=== PATIENT | female | born 1960 | race Caucasian/White ===

== ENCOUNTER 2017-11-04 00:17 | Outpatient (CLI) | payer BC, SELFPAY ==
--- NOTE | 2017-11-04 07:49 | DI.MAMMO_ITS ---
SYMPTOM/DIAGNOSIS: SCREENING, Z12.31 MAMMOGRAMS: Mammograms were interpreted according to the usual protocol including computer analysis with CAD system, tomosynthesis and C view imaging. Comparison is made with exams from [id number]. The breasts are composed of fatty density tissue, breast density, Category A. In the superior left breast, slightly lateral to the nipple, there is a new area of somewhat irregular tissue density. Spot compression views and ultrasound are requested for further evaluation. The right breast shows no evidence of mass or suspicious calcifications. There has been no change in the right breast. IMPRESSION: Right breast, category 1, negative. Left breast, category 0. Left breast compression spot views and ultrasound are requested for further evaluation of an area of nodular tissue density in the upper outer quadrant. SA ASSESSMENT OF FINDINGS: Incomplete: Needs additional imaging evaluation. Category 0. Patient will receive a letter notifying them of these results.BI-RAD category A. The breasts are almost entirely fatty.
== END 2017-11-04 00:37 ==
PROVIDERS: PCP Internal Medicine; Visit Provider Nurse Practitioner Women's Health
DX: Z12.31 Encounter for screening mammogram for malignant neoplasm of breast (principal); R92.8 Other abnormal and inconclusive findings on diagnostic imaging of breast
CPT/HCPCS: 77063; 77067

== ENCOUNTER 2017-11-09 01:17 | Outpatient (CLI) | payer BC, SELFPAY ==
--- NOTE | 2017-11-09 13:19 | DI.COMBO_ITS ---
SYMPTOMS/DIAGNOSIS: F/U ABNORMAL MAMMO, IRREGULAR TISSUE DENSITY ADDITIONAL MAMMOGRAPHIC VIEWS, LEFT BREAST, AND LEFT BREAST ULTRASOUND: Additional images are interpreted according to the usual protocol including tomosynthesis and 2D imaging. Additional mammographic views of the left breast and left breast ultrasound are interpreted in conjunction. These examinations were obtained to evaluate questionable area of asymmetric density in the upper outer quadrant of the left breast seen on recent mammogram. Additional mammographic views fail to show a discrete mass. Breast ultrasound shows no evidence of a mass or cyst. CONCLUSION: No specific evidence of malignancy at this time. Follow-up unilateral left breast mammogram recommended in six months. Category 3, breast density category B. MQSA ASSESSMENT OF FINDINGS: Probably benign. Six month follow-up recommended. Category 3. Patient will receive a letter notifying them of these results. BI-RADS category B. There are scattered areas of fibroglandular density.
== END 2017-11-09 01:37 ==
PROVIDERS: PCP Internal Medicine; Visit Provider Nurse Practitioner Women's Health
DX: Z12.31 Encounter for screening mammogram for malignant neoplasm of breast (principal); R92.8 Other abnormal and inconclusive findings on diagnostic imaging of breast; N64.59 Other signs and symptoms in breast
CPT/HCPCS: 76642; 77063; 77067

== ENCOUNTER 2018-07-06 00:56 | Outpatient (CLI) | payer BC, SELFPAY ==
--- NOTE | 2018-07-06 14:17 | DI.MAMMO_ITS ---
SYMPTOMS/DIAGNOSIS: 6-MO F/U TO ABNORMAL LEFT MAMMO, ASYMMETRIC DENSITY, N64.59 MAMMOGRAM, LEFT BREAST: Left breast mammogram was interpreted according to the usual protocol including computer analysis with CAD system, tomosynthesis and C view imaging. Today's mammogram was obtained to follow an area of asymmetric density in the upper outer quadrant of the left breast seen on previous examination of October 2017. On today's examination, the area of asymmetric density is no longer seen. No new mass or clumped microcalcification is identified in the left breast. CONCLUSION: No specific evidence of malignancy at this time. I would suggest that routine screening examinations resume with a bilateral mammogram in six months. Category 3, breast density category B. MQSA ASSESSMENT OF FINDINGS: Probably benign. Six month follow-up recommended. Category 3. Patient will receive a letter notifying them of these results. BI-RADS category B. There are scattered areas of fibroglandular density.
== END 2018-07-06 01:16 ==
PROVIDERS: PCP Internal Medicine; Visit Provider Nurse Practitioner Women's Health
DX: Z12.31 Encounter for screening mammogram for malignant neoplasm of breast (principal); R92.8 Other abnormal and inconclusive findings on diagnostic imaging of breast; N64.59 Other signs and symptoms in breast
CPT/HCPCS: 77061; 77065; G0279

== ENCOUNTER 2019-02-01 00:36 | Outpatient (CLI) | payer BC, SELFPAY ==
--- NOTE | 2019-02-01 07:28 | DI.MAMMO_ITS ---
EXAM: MG MAMMO SCREENING CLINICAL HISTORY: SCREENING Z12.31. TECHNIQUE: Full field digital CC and MLO mammographic images were obtained with 3D tomosynthesis and utilizing computer aided detection (CAD). COMPARISON: . 2009 through 2018 FINDINGS: Breast density: B scattered fibroglandular densities. Masses/Architectural Distortion: None seen. Microcalcifications: No suspicious pleomorphic-type calcifications are seen. Skin Thickening/Nipple Retraction: None. Axilla: Unremarkable. IMPRESSION: 1. BI-RADS category 1, negative. No significant interval change with no specific features of maligna ncy noted. 2. Unless there is more urgent need, screening mammography is recommended, as per [employer] guidelines. A negative radiographic report should not delay biopsy if a dominant or clinically suspicious mass is present. Up to ten percent of cancers are not identified on mammography. A negative report may reinforce clinical impression. Adenosis and dense breasts may obscure an underlying neoplasm. False positive reports average 6 to 10%. Patient will receive a letter notifying them of these results.
== END 2019-02-01 00:56 ==
PROVIDERS: PCP Internal Medicine; Visit Provider Nurse Practitioner Women's Health
DX: Z12.31 Encounter for screening mammogram for malignant neoplasm of breast (principal)
CPT/HCPCS: 77063; 77067

== ENCOUNTER 2020-01-03 07:39 | Outpatient (CLI) | payer BC, SELFPAY ==
[2020-01-03 16:41] LABS: Abs Immature Grans 0.03 10^3/uL (0.0-0.06); Absolute Basophil Count 0.01 10^3/uL (0.0-0.2); Absolute Eosinophil Count 0.15 10^3/uL (0.0-0.7); Absolute Lymphocyte Count 2.38 10^3/uL (1.2-3.4); Absolute Monocyte Count 0.33 10^3/uL (0.1-0.8); Absolute Neutrophil Count 3.48 10^3/uL (1.2-6.7); Basophils % 0.2; Eosinophils % 2.4; HCT 31.9 % (36.0-46.0); Immature Grans % 0.5; Lymphocytes % 37.3; MCH 27.6 pg (27.0-33.0); MCHC 31.3 % (32.0-36.0); MCV 88.1 fL (80-95); MPV 10.3 fL (8.0-11.0); Monocytes % 5.2; Neutrophils % 54.4; Nucleated RBC 0 %; Platelet Count 372 10^3/uL (130-400); RBC 3.62 10^6/uL (3.93-5.22); RDW 15.8 % (11.7-14.6); RDW-SD 50.1 fL; WBC 6.38 10^3/uL (4.4-10.8)
[2020-01-22 13:28] LABS: Albumin 3.7 g/dL (3.4-4.7); IgA 16 mg/dL (61-356); IgG 2320 mg/dL (767-1590); IgM 13 mg/dL (37-286); Lambda Free Light Chain 62.9 mg/dL (0.5700-2.63); Total Protein 8.4 g/dL (6.3-7.9)
[2020-01-22 13:30] LABS: Comment See Comments
[2020-01-22 14:21] LABS: Immunotyping, Serum See Comments
== END 2020-01-03 07:59 ==
PROVIDERS: PCP Internal Medicine; Visit Provider Internal Medicine Hematology & Oncology
DX: C90.00 Multiple myeloma not having achieved remission (principal); D47.2 Monoclonal gammopathy
CPT/HCPCS: 36415; 82784; 83883; 84165; 85025; 86320

== ENCOUNTER 2020-02-04 00:23 | Outpatient (CLI) | payer BC, SELFPAY ==
--- NOTE | 2020-02-04 | DI.MAMMO_ITS ---
EXAM: MG MAMMO SCREENING CLINICAL HISTORY: SCREENING,Z12.39. TECHNIQUE: Bilateral full field digital CC and MLO mammographic images were obtained with 3D tomosyn thesis and utilizing computer aided detection (CAD). COMPARISON: Prior mammograms dating back to 2011, the most recent being January 2019. Breast ultra sound October 2017 was reviewed FINDINGS: There are no CAD designations. Small benign-appearing nodule in the left breast is unchanged from pr ior studies. There are no spiculated masses nor malignant appearing microcalcification groups. There is no signif icant architectural distortion nor skin thickening-retraction. IMPRESSION: No radiographic evidence of malignancy. Stable benign findings BI-RADS Category 2 - Benign Findings Breast Density - Category B - Scattered areas of fibroglandular density Breast density Category C or D implies that the patient has dense breast tissue. Dense breast tissue can make it harder to find cancer on a mammogram. Dense breast tissue is also associated with an incr eased risk of breast cancer. This information about the result of the mammogram report was provided to the patient to raise their awareness. Use this report when you speak with the patient about their risks for breast cancer, which includes their family history. At that time, you may recommend additional screening tests (Ultrasoun d or MRI) as these tests may add significant information. A negative radiographic report should not delay biopsy if a dominant or clinically suspicious mass is present. Up to ten percent of cancers are not identified on mammography. A negative report may reinforce clinical impression. Adenosis and dense breasts may obscure an underlying neoplasm. False positive reports average 6 to 10%. Patient will receive a letter notifying them of these results.
== END 2020-02-04 00:43 ==
PROVIDERS: PCP Internal Medicine; Visit Provider Nurse Practitioner Women's Health
DX: Z12.31 Encounter for screening mammogram for malignant neoplasm of breast (principal); N63.20 Unspecified lump in the left breast, unspecified quadrant
CPT/HCPCS: 77063; 77067

== ENCOUNTER 2021-02-11 01:31 | Outpatient (CLI) | payer BC, SELFPAY ==
--- NOTE | 2021-02-11 | DI.MAMMO_ITS ---
Exam(s) MAMMO SCREENING EXAM: MAMMO SCREENING CLINICAL HISTORY: SCREENING, Z12.39 TECHNIQUE: Bilateral full field digital CC and MLO mammographic images were obtained with 3D tomosyn thesis and utilizing computer aided detection (CAD). COMPARISON: Available for comparison. FINDINGS: Masses/Architectural Distortion: None seen. Microcalcifications: No suspicious pleomorphic-type are seen. Skin Thickening/Nipple Retraction: None. IMPRESSION: 1. No significant interval change with no specific features of malignancy noted. 2. Unless there is more urgent need, screening mammography is recommended, as per [employer] guidelines. BI-RADS Category 1 - Negative Breast Density - Category B - Scattered areas of fibroglandular density Breast density category C or D implies that the patient has dense breast tissue. Dense breast tissue is very common and is not abnormal but dense breast tissue can make it harder to find cancer on a ma mmogram. Also, dense breast tissue may increase their breast cancer risk. This information about the result of the mammogram report was provided to the patient to raise their awareness. Use this report when you speak with the patient about their risks for breast cancer, which includes their family hist ory. At that time, you may recommend for more screening tests (Ultrasound or MRI) as they might be us eful based on their risk. A negative radiographic report should not delay biopsy if a dominant or clinically suspicious mass is present. Up to ten percent of cancers are not identified on mammography. A negative report may reinforce clinical impression. Adenosis and dense breasts may obscure an underlying neoplasm. False positive reports average 6 to 10%. Patient will receive a letter notifying them of these results.
== END 2021-02-11 01:51 ==
PROVIDERS: PCP Internal Medicine; Visit Provider Nurse Practitioner Women's Health
DX: Z12.31 Encounter for screening mammogram for malignant neoplasm of breast (principal)
CPT/HCPCS: 77063; 77067

== ENCOUNTER 2022-03-23 01:15 | Outpatient (CLI) | payer BC, SELFPAY ==
--- NOTE | 2022-03-23 | DI.MAMMO_ITS ---
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 COMPARISON: Available for comparison. FINDINGS: Masses/Architectural Distortion: There has been no change in the retroareolar nodule in the left [address]. No suspicious nodules or areas of architectural distortion are seen. Microcalcifications: No suspicious pleomorphic-type are seen. Skin Thickening/Nipple Retraction: None. IMPRESSION: 1. No significant interval change with no specific features of malignancy noted. 2. Unless there is more urgent need, screening mammography is recommended, as per [employer] guidelines. BI-RADS Category 1 - Negative Breast Density - Category B - Scattered areas of fibroglandular density Breast density category C or D implies that the patient has dense breast tissue. Dense breast tissue is very common and is not abnormal but dense breast tissue can make it harder to find cancer on a ma mmogram. Also, dense breast tissue may increase their breast cancer risk. This information about the result of the mammogram report was provided to the patient to raise their awareness. Use this report when you speak with the patient about their risks for breast cancer, which includes their family hist ory. At that time, you may recommend for more screening tests (Ultrasound or MRI) as they might be us eful based on their risk. A negative radiographic report should not delay biopsy if a dominant or clinically suspicious mass is present. Up to ten percent of cancers are not identified on mammography. A negative report may reinforce clinical impression. Adenosis and dense breasts may obscure an underlying neoplasm. False positive reports average 6 to 10%. Patient will receive a letter notifying them of these results.
== END 2022-03-23 01:35 ==
LOC: DI 01:15
PROVIDERS: PCP Internal Medicine; Visit Provider Nurse Practitioner Women's Health
DX: Z12.31 Encounter for screening mammogram for malignant neoplasm of breast (principal)
CPT/HCPCS: 77063; 77067

== ENCOUNTER → 2023-03-29 01:26 | Outpatient (CLI) | payer BC, SELFPAY ==
--- OUTSIDE RECORDS SUMMARY | 2023-03-29 01:28 | XMS_ITS | Continuity of Care Document ---
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 exam(Discharge Diagnosis) - 11/17/22 Screening mammogram for breast cancer(Discharge Diagnosis) - 11/17/22 Discharge Disposition: Home or Self Care Attending Physician: Joan Deleon APRN Referring Physician: JULISA RUVALCABA Allergies, Adverse Reactions, Alerts Substance Reaction Severity Status tetracycline stomach pain Moderate Active sulfa drugs itching Moderate Active fluoride containing compounds rash around mouth Modera te Active Assessment and Plan Future Scheduled Tests Radiology* MG Mammo Screening Bilateral 11/17/22 Medications AAA - [facility] Prescription 180 tab, 0 Refill(s), 0 Refill(s) Start Date: 11/16/22 Status: Ordered Adult Multivitamin Gummies oral tablet, chewable See Instructions, 1 tab oral daily, 0 Refill(s) Start Date: 11/16/22 Status: Ordered amLODIPine 10 mg oral tablet 90 tab, 0 Refill(s), 0 Refill(s) Start Date: 11/16/22 Status: Ordered amoxicillin-clavulanate 500 mg-125 mg oral tablet 10 EA, 0 Refill(s), take 1 tablet by mouth every 12 hours if needed with meals for 5 days, 0 Refill(s) Start Date: 11/16/22 Status: Ordered aspirin 325 mg oral tablet 325 mg = 1 tab, Oral, Daily, # 30 tab, 0 Refill(s) Start Date: 11/16/22 Status: Ordered aspirin 81 mg oral delayed release tablet 81 mg = 1 tab, Oral, Daily, # 90 tab, 0 Refill(s) Start Date: 11/17/22 Status: Ordered atorvastatin 20 mg oral tablet 90 tab, 0 Refill(s), 0 Refill(s) Start Date: 11/16/22 Status: Ordered benzonatate 200 mg oral capsule 30 EA, 0 Refill(s), take 1 capsule by mouth three times a day if needed for 10 days, 0 Refill(s) Start Date: 11/16/22 Status: Ordered betamethasone dipropionate 0.05% topical cream 15 g, 0 Refill(s), APPLY A THIN LAYER TO AFFECTED AREA ONCE DAILY DIRECTED, 0 Refill(s) Start Date: 11/16/22 Status: Ordered buPROPion 300 mg/24 hours (XL) oral tablet, extended release 90 tab, 0 Refill(s), 0 Refill(s) Start Date: 11/16/22 Status: Ordered cephalexin 500 mg oral capsule 8 EA, 0 Refill(s), take 4 capsules by mouth 1 hour prior to dental appointment, 0 Refill(s) Start Date: 11/16/22 Status: Ordered clindamycin 300 mg oral capsule 4 EA, 0 Refill(s), take 2 capsules by mouth 1 HOUR BEFORE DENTAL APPOINTMENT, 0 Refill(s) Start Date: 11/16/22 Status: Ordered doxycycline monohydrate 100 mg oral capsule 14 EA, 0 Refill(s), take 1 capsule by mouth twice a day with meals for 7 days, 0 Refill(s) Start Date: 11/16/22 Status: Ordered gabapentin 300 mg oral capsule 810 cap, 0 Refill(s), 0 Refill(s) Start Date: 11/16/22 Status: Ordered ketoconazole 2% topical cream 30 g, 0 Refill(s), APPLY TO AFFECTED AREA(S) ONCE DAILY DIRECTED, 0 Refill(s) Start Date: 11/16/22 Status: Ordered Lenalidomide 10 mg oral capsule 21 cap, 0 Refill(s), 0 Refill(s) Start Date: 11/16/22 Status: Ordered Lenalidomide 20 mg oral capsule 21 cap, 0 Refill(s), 0 Refill(s) Start Date: 11/16/22 Status: Ordered lisinopril 40 mg oral tablet 90 tab, 0 Refill(s), 0 Refill(s) Start Date: 11/16/22 Status: Ordered magnesium gluconate 250 mg oral tablet 250 mg 1 tab, Oral, Daily, # 60 tab, 0 Refill(s) Start Date: 11/16/22 Status: Ordered Metoprolol Succinate ER 100 mg oral tablet, extended release 90 tab, 0 Refill(s), 0 Refill(s) Start Date: 11/16/22 Status: Ordered Nyamyc 100,000 units/g topical powder 60 g, 0 Refill(s), apply to affected area twice a day, 0 Refill(s) Start Date: 11/16/22 Status: Ordered omeprazole 20 mg oral delayed release capsule 90 cap, 0 Refill(s), 0 Refill(s) Start Date: 11/16/22 Status: Ordered Revlimid 20 mg oral capsule 21 cap, 0 Refill(s), 0 Refill(s) Start Date: 11/16/22 Status: Ordered Rhinocort Allergy 32 mcg/inh nasal spray 1 sprays, Nasal, Daily, in each nostril, 0 Refill(s) Start Date: 11/16/22 Status: Ordered sertraline 50 mg oral tablet 90 tab, 0 Refill(s), 0 Refill(s) Start Date: 11/16/22 Status: Ordered tiZANidine 4 mg oral tablet 180 tab, 0 Refill(s), 0 Refill(s) Start Date: 11/16/22 Status: Ordered triamcinolone 0.1% topical cream 30 g, 0 Refill(s), APPLY A THIN LAYER TO THE AFFECTED AREA(S) TWICE DAILY DIRECTED, 0 Refill(s) Start Date: 11/16/22 Status: Ordered Vitamin D3 1000 intl units oral tablet See Instructions, 2 tabs Oral Daily, 0 Refill(s) Start Date: 11/16/22 Status: Ordered zinc (as gluconate) 50 mg oral tablet 50 mg = 1 tab, Oral, Daily, # 30 tab, 0 Refill(s) Start Date: 11/16/22 Status: Ordered Problem List Condition Confirmation Course Effective Dates Status H ealth Status Informant Anemia Confirmed Active Atrophic vaginitis Confirmed Active Bilateral sacroiliitis Confirmed Active Carpal tunnel syndrome Confirmed Active CC - Collagenous colitis Confirmed Active Chronic pain Confirmed Active Depression Confirmed Active History of malignant neoplasm of skin Confirmed Active History of operative procedure on knee Confirmed Active History of shingles Confirmed Active History of total knee arthroplasty Confirmed Active Hyperlipidemia Confirmed Active Hypertension Confirmed Active Inflammation of sacroiliac joint Confirmed Active Lumbosacral spondylosis without myelopathy Confirmed Active MGUS - Monoclonal gammopathy of uncertain significance Confirmed Active Nontraumatic rupture of rotator cuff of right shoulder Confirmed Active Opioid dependence Confirmed Active Osteoarthritis of knee Confirmed Active Osteoarthritis of left knee joint Confirmed Active Plantar fasciitis Confirmed Active Smoldering multiple myeloma Confirmed Active Procedures Procedure Date Related Diagnosis Body Site Status Colonoscopy and EGD 1 08/2020 Com pleted Left TKA 05/2020 Completed Colonoscopy 2 10/10/19 Completed EGD - Esophagogastroduodenoscopy 10/10/19 Completed History of repair of right rotator cuff 08/05/19 Completed Bone density scan 3 08/21/17 Compl eted Bone marrow biopsy 08/21/17 Comple oralia Right TKA 07/03/17 Completed Back surgery 12/2012 Completed [id number] 08/2012 Com pleted Colonoscopy 2012 Completed Bone marrow biopsy 5 Comp leted 1Dr Mitz 2Dr Steffany 3full bone xray-negative results 4recall 10 years 5[facility] Vital Signs Most recent to oldest [Reference Range]: 1 Blood Pressure [90-140/60-90 mmHg] 136/8 6mmHg (11/17/22 9:24 AM) Weight 83.5 kg (11/17/22 9:24 AM) Weight Measured (lbs) 184.086 lb (11/17/22 9:24 AM) Plover Body Weight Calculated 45.5 kg (11/17/22 9:24 AM) Height 149.86 cm (11/17/22 9:24 AM) Height/Length Measured (inches) 59 inch (11/17/22 9:24 AM) BSA Measured 1.86 m2 (11/17/22 9:24 AM) Body Mass Index 37.18 kg/m2 (11/17/22 9:24 AM) Social History Social History Type Response Smoking Status Smoking tobacco use: Former tobacco user;Never entered on: 11/16/22 Sex Patient Care team information Care Team Personnel Name: JULISA RUVALCABA Position: No Access Member Role: Primary Care Physician Address: Address: [address] [place] [phone]
--- OUTSIDE RECORDS SUMMARY | 2023-03-29 01:28 | XMS_ITS | Continuity of Care Document ---
Author Name Unknown Organization [facility] Address [address] [place] [id number] Care Team Providers Care Sweatband Flanger Name Role Phone JULISA RUVALCABA Primary Care Physician [phone] Encounter [facility] FIN NBR [id number] Date(s): 11/18/22 - 11/18/[address] [address] Discharge Disposition: Home Allergies, Adverse Reactions, Alerts Substance Reaction Severity Status tetracycline stomach pain Moderate Active sulfa drugs itching Moderate Active fluoride containing compounds rash around mouth Modera te Active Assessment and Plan Future Scheduled Tests Radiology* MG Mammo Screening Bilateral 11/17/22 Medications AAA - Misc Prescription 180 tab, 0 Refill(s), 0 Refill(s) [...] TKA 07/03/17 Completed Back surgery 12/2012 Completed [id number]-WOX-nfyrjhudp 08/2012 Com pleted Colonoscopy 2012 Completed Bone marrow biopsy 5 Comp leted 1Dr Kenton 2Dr Steffany 3full bone xray-negative results 4recall 10 years 5[facility] Social History Social History Type Response Smoking Status Smoking tobacco use: Former tobacco user;Never entered on: 11/16/22 Sex Patient Care team information Care Team Personnel Name: JULISA RUVALCABA Position: No Access Member Role: Primary Care Physician Address: Address: [address] [place] [address]
--- OUTSIDE RECORDS SUMMARY | 2023-03-29 01:28 | XMS_ITS | Patient Health Record ---
Author Name Unknown Organization [facility] Office Address [address] [facility] [address] [place], [place] [id number] Care Team Providers Care Distillery Miller Helper Name Role Phone Dr. DAO RIGGS Unavailable [phone] Migration, Provider Unavailable Unavailable ALLERGIES Allergen (clinical drug ingredient) Drug/Non Drug Allergy documented on EMR Reaction Allergy Type Onset Date Status Product containing tetracycline structure (product) tetracyclines (uncoded) Unknown Allergy 11/28/2018 Active Fluoride Unknown Drug Allergy 11/28/2018 Active Substance with sulfonamide structure and antibacterial mechanism of action (substance) Sulfa Antibiotics Unknown Drug Allergy 11/28/2018 Active REASON FOR REFERRAL No Information MEDICATIONS Medication SIG (Take, Route, Frequency, Duration) Notes Start Date End Date Status buPROPion buPROPion *Reord er from [employer] for eRx and Interaction Alerts* 11/28/2018 Active Simvastatin simvastatin *Pic k strength-form from [employer] for eRX* 11/28/2018 Active Lidoderm 5 % External Lidoderm 11/28/2018 Active sertraline sertraline *Reor delmar from [employer] for eRx and Interaction Alerts* 11/28/2018 Active Lopressor Lopressor *Pick strength-form from [employer] for eRX* 11/28/2018 Active Lisinopril lisinopril *Pick strength-form from [employer] for eRX* 11/28/2018 Active Meloxicam 15 MG Oral qd meloxicam 11/28/2018 Act jackie SOCIAL HISTORY Sex Assigned At : Social History Observation Description Sex Assigned At Unknown PROBLEMS Problem Type ICD Code Onset Dates Problem Status W/U Status Risk SNOMED Code Notes Problem 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 Fear of nee dles (finding) (866234819) Problem Situational anxiety (F41.8) Active confirmed Anxiety (03072085) Problem Other specified arthritis, other site (M13.88) Active confirmed Arthritis (1755047) [place] [address] 47- Problem Pain in right shoulder (M25.511) Active confirmed Shoulder joint pain (131245734) [place] [address]- Problem Sacroiliitis, not elsewhere classified (M46.1) Active confirmed Solitary sacroiliitis (023251813) [facility] 47- Problem Spondylosis without myelopathy or radiculopathy, lumbar region (M47.816) Active confirmed Lumbosacral spondylosis without myelopathy (72162984) [place] [address]- Problem Other myositis, right shoulder (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) Active confirmed Myositis of right shoulder (disorder) (20362208434038 109) [place] [address]- Problem Spinal stenosis, lumbar region without neurogenic claudication (M48.061) Active confirmed Spinal stenosis of lumbar region (23606530) [place] [address]- VITAL SIGNS Heart Rate 54 /min 12/15/2022 Temperature 97.1 degrees Fahrenheit 12/15/2022 Respiratory Rate 16 /min 12/15/2022 Height-cm 149.86 cm 12/15/2022 Oximetry 97 % 12/15/2022 Blood pressure diastolic 52 mm Hg 11/30/2022 Weight-kg 79.38 kg 11/30/2022 Height 4' 11 in 11/30/2022 Blood pressure systolic 126 mm Hg 11/30/2022 Weight 175 lbs 11/30/2022 BMI 35.34 kg/m2 11/30/2022 PROCEDURES Procedure Date Ordered Date Performed Result Body Sit e * INCORRECT CODE FOR LUMBAR RFL 11/30/2022 N/A * LUMBAR RFL ADDL LEVELS 11/30/2022 N/A *SEDATION MODERATE 62413 11/30/2022 N/A Encounters Encounter Location Date Provider Diagnosis [facility] Office [address] [place] [address] [address] [place], [place] [id number] 03/31/2022 Provider Migration [facility] Office [address] [facility] [address] [place], [place] [id number] 04/01/2022 DAO RIGGS [facility] Office [address] [place] [address] [address] [place], [place] [id number] 04/21/2022 DAO RIGGS [facility] Office [address] [place] [address] [address] [place], [place] [id number] 05/05/2022 DAO RIGGS [facility] Office [address] [place] [address] [address] [place], [place] [id number] 08/05/2022 DAO RIGGS [facility] Office [address] [place] [address] [address] [place], [place] [id number] 11/30/2022 DAO RIGGS Spondylosis without myelopathy or radiculopathy, lumbar region M47.816 [facility] Office [address] [place] [address] [address] [place], [place] [id number] 12/15/2022 DAO RIGGS Severe needle phobia F40.231 ; Spondylosis without myelopathy or radiculopathy, lumbar region M47.816 and Situational anxiety F41.8 [facility] Office [address] [place], [place] [id number] 09/11/2022 Provider Migration [facility] Office [address] [place] [address] [address] [place], [place] [id number] 09/12/2022 Provider Migration ASSESSMENTS Encounter Date Diagnosis Assessment Notes Treatment Notes Treatment Clinical Notes 11/30/2022 Spondylosis without myelopathy or radiculopathy, lumbar region (ICD-10 - M47.816) 12/15/2022 Severe needle phobia (ICD-10 - F40.231) 12/15/2022 Spondylosis without myelopathy or radiculopathy, lumbar region (ICD-10 - M47.816) [id number]- 12/15/2022 Situational anxiety (ICD-10 - F41.8) PLAN OF TREATMENT Pending Test Test Name Order Date * INCORRECT CODE FOR LUMBAR RFL 12/01/19 23 * LUMBAR RFL ADDL LEVELS 11/30/2022 *SEDATION MODERATE [id number] 11/30/2022 Insurance Providers Payer Name Payer Address Payer Phone Subscriber Number Group Number Insured Name Patient Relationship to Insured Coverage Start Date Coverage End Date BCBS [address] [place], [place] [id number] CHASTITY [id number] Self - patient is the insured MEDICAL (GENERAL) HISTORY Medical History History ICD Code Obesity, unspecified Radial styloid tenosynovitis [de Quervai n] Nicotine dependence, other tobacco produ ct, uncomplicated Lumbar MRI : :- Notes: worseing of levoscoliosis from 2-13 study; worsening of L2-3 severe nfn right worst; mod right nfn L3-4; severe canal narrowing L4-5 with mod-severe shala nfn; multilevel facet hypertrophy and disc bulges , Actinic keratosis Chronic kidney disease, stage 1 Anemia, unspecified Hyperlipidemia, unspecified Obstructive sleep apnea (adult) (pediatr ic) Dermatitis, unspecified Monoclonal gammopathy Age-related osteoporosis without current pathological fracture Essential (primary) hypertension Gastro-esophageal reflux disease without esophagitis Surgical History Surgery Date(Month/Year) right CTR 2012 right L5-S1 medial facetectomy Dr Martha torres [address] Belle ARTHROCENTESIS ASPIR&/INJ INTERM JT/BURS W/US Injection procedure for sacroiliac joint ; arthrography 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
--- OUTSIDE RECORDS SUMMARY | 2023-03-29 01:28 | XMS_ITS | Continuity of Care Document ---
Author Name Unknown Organization [facility] Address [address] [place], [place] [address] Care Team Providers Care Biomedical Engineering Director Name Role Phone Hernán Moreno Primary Care Physician Encounter [facility] [id number] Date(s): 01/06/23 - 01/06/[address] Discharge Disposition: Home or Self Care Attending Physician: Judy Wynn MD Admitting Physician: Judy Wynn MD Referring Physician: Judy Wynn MD Assessment and Plan Future Appointments Social History Social History Type Response Sex Female Patient Care team information Care Team Personnel Name: Hernán Moreno CONTOUR STITCHER Position: Mid-Level Provider - Auth Member Role: Primary Care Physician Address: Address: [address] [place] [address]
--- NOTE | 2023-03-29 08:46 | DI.MAMMO_ITS ---
Exam(s) MAMMO SCREENING EXAM: MAMMO SCREENING CLINICAL HISTORY: SCREENING, Z12.31 TECHNIQUE: Mammograms were interpreted according to the usual protocol including computer analysis w [employer] CAD system, tomosynthesis and C-view imaging. COMPARISON: 2013 through 2022 FINDINGS: The breasts are composed of scattered fibroglandular densities, Breast Density category B. No suspicious masses or suspicious microcalcifications are seen. No skin thickening or abnormal axillary lymph nodes are seen. There has been no significant change from prior exams. IMPRESSION: BI-RADS Category 1, Negative mammogram Yearly screening mammography is recommended. Breast Density - Category B, scattered fibroglandular densities. A negative radiographic report should not delay biopsy if a dominant or clinically suspicious mass is present. Up to ten percent of cancers are not identified on mammography. A negative report may reinforce clinical impression. Adenosis and dense breasts may obscure an underlying neoplasm. False positive reports average 6 to 10%. Patient will receive a letter notifying them of these results.
== END ==
PROVIDERS: PCP Internal Medicine; Visit Provider Nurse Practitioner Women's Health
DX: Z12.31 Encounter for screening mammogram for malignant neoplasm of breast (principal); R92.323 Mammographic fibroglandular density, bilateral breasts
CPT/HCPCS: 77063; 77067

== ENCOUNTER 2024-04-04 02:04 | Outpatient (CLI) | payer BC, SELFPAY ==
--- NOTE | 2024-04-04 | DI.MAMMO_ITS ---
Exam(s) MAMMO SCREENING EXAM: MAMMO SCREENING CLINICAL HISTORY: SCREENING, Z12.31. TECHNIQUE: Bilateral full field digital CC and MLO mammographic images were obtained with 3D tomosyn thesis and utilizing computer aided detection (CAD). COMPARISON: Prior mammograms were reviewed. FINDINGS: There has been no significant change in the appearance and distribution of the fibroglandular tissue. Small benign-appearing nodule anteriorly in the left breast is unchanged from least 2016. Posteriorly in the left breast there is a small nodular density also noted which is unchanged from pr ior mammograms and consistent with probable benign intramammary lymph node. There are no new spiculated masses nor malignant appearing microcalcification groups. There is no significant architectural distortion nor skin thickening-retraction. IMPRESSION: No radiographic evidence of malignancy. Stable benign findings BI-RADS Category 2 - Benign Findings Breast Density - Category B - Scattered areas of fibroglandular density Breast density Category C or D implies that the patient has dense breast tissue. Dense breast tissue can make it harder to find cancer on a mammogram. Dense breast tissue is also associated with an incr eased risk of breast cancer. This information about the result of the mammogram report was provided to the patient to raise their awareness. Use this report when you speak with the patient about their risks for breast cancer, which includes their family history. At that time, you may recommend additional screening tests (Ultrasoun d or MRI) as these tests may add significant information. A negative radiographic report should not delay biopsy if a dominant or clinically suspicious mass is present. Up to ten percent of cancers are not identified on mammography. A negative report may reinforce clinical impression. Adenosis and dense breasts may obscure an underlying neoplasm. False positive reports average 6 to 10%. Patient will receive a letter notifying them of these results.
== END 2024-04-04 02:24 ==
LOC: DI 02:05
PROVIDERS: PCP Internal Medicine; Visit Provider Nurse Practitioner Women's Health
DX: Z12.31 Encounter for screening mammogram for malignant neoplasm of breast (principal); R92.323 Mammographic fibroglandular density, bilateral breasts; D24.2 Benign neoplasm of left breast
CPT/HCPCS: 77063; 77067

== ENCOUNTER 2024-06-20 00:34 | Outpatient (CLI) | payer BC, SELFPAY ==
--- NOTE | 2024-06-20 07:00 | DI.MRI_ITS ---
Exam(s) MR LUMBAR SPINE WO EXAM: MR LUMBAR SPINE WO CLINICAL HISTORY: LOW BACK pain,POST LAMINECTOMY SYNDROME,LUMBAR RADICULITIS. TECHNIQUE: Multiplanar multisequence MRI of the Lumbar spine was performed. COMPARISON: MR MRI LUMBAR WO/ from 08/05/2009 FINDINGS: Bones: The last intervertebral disc space is designated the L5/S1 level for the numbering purpose of this examination. The vertebral body heights are well maintained. Insert prior examination in 2009 the patient has undergone what appears to be both an L4 and L5 laminectomy. There is a grade 1 anter olisthesis of L4 on L5. There are endplate degenerative signal changes throughout the lower thoracic and lumbar spine. Cord: The conus tip ends at the T12 level. It is of normal size and signal intensity. T12-L1: There is a mild diffuse disc bulge. No significant central spinal canal stenosis is present. There is mild bilateral neural foraminal stenosis. L1-2: No focal disc herniation is seen. No significant central spinal canal stenosis is present. Th ere is disc material extending into the right neural foramen causing moderate right neural foraminal stenosis. No significant left neural foraminal stenosis is present. L2-3: There is a mild diffuse disc bulge extending into the neural foramen. Mild degenerative change s of the facets are present. No significant central spinal canal stenosis is seen. There is moderat e bilateral neural foraminal stenosis. L3-4: There is a mild diffuse disc bulge. Degenerative changes of the facets are present. There is mild narrowing of the central spinal canal. There is marked right and moderate left neural foraminal stenosis. L4-5: There is marked central spinal canal stenosis secondary to the anterolisthesis and degenerative facet arthropathy at this level. There is marked bilateral neural foraminal stenosis, left greater than right. L5-S1: There is a diffuse disc bulge. There are degenerative changes of the facets. Findings result in moderately severe central spinal canal stenosis. There is moderate bilateral neural foraminal st enosis. Soft tissues: The visualized SI joints and sacrum are well maintained. The paraspinal soft tissues ar e unremarkable. Visualized abdominal organs: There are few tiny simple cysts in the kidneys. No follow-up is recomme nded. IMPRESSION: 1. At L4-5 there is marked central spinal canal stenosis and bilateral marked neural foraminal stenos is secondary to the degenerative changes in the anterolisthesis. 2. Multilevel degenerative changes in the lumbar spine resulting in central spinal canal and neural f oraminal stenosis as described above. DATA REPOSITORY:
== END 2024-06-20 00:54 ==
LOC: DI 00:34
PROVIDERS: PCP Internal Medicine; Visit Provider Anesthesiology Pain Medicine
DX: M96.1 Postlaminectomy syndrome, not elsewhere classified (principal); M47.816 Spondylosis without myelopathy or radiculopathy, lumbar region
CPT/HCPCS: 72148

== ENCOUNTER 2024-07-11 10:09 | Outpatient (CLI) | payer BC, SELFPAY ==
--- NOTE | 2024-07-11 06:00 | DI.RAD_ITS ---
Exam(s) XR PAIN CLINIC LUMBAR SP 2V EXAM: XR PAIN CLINIC LUMBAR SP 2V CLINICAL HISTORY: DX: Lumbar Radiculopathy TECHNIQUE: 2D and realtime digital imaging was performed. CONTRAST MATERIAL: Refer to procedure report. COMPARISON: No exams were available for comparison FINDINGS: Fluoroscopy was provided for Dr. Riley during the performance of a caudal epidural steroid injection. Please refer to the procedure report for complete details. Ka,r=18.2 mGy IMPRESSION: RADIATION DOSE DELIVERED: 0.0 0.0 0
[2024-07-11 10:19] VITALS: BP 165/79; PULSE 58; RESP 18; TEMP 36.8; O2SAT 99
[2024-07-11 10:55] VITALS: BP 189/73; PULSE 57; O2SAT 98
[2024-07-11 11:05] VITALS: BP 181/81; PULSE 60; O2SAT 97
[2024-07-11 11:10] VITALS: BP 188/70
[2024-07-11] MEDS: Nerve Block Tray 1 EACH MC (11:17)
[2024-07-11] MEDS: Omnipaque 240 MG/ML 50 ML BTL IJ (11:17)
[2024-07-11] MEDS: methylPREDNISolone ACETATE 80 MG/ML VIAL IJ (11:17)
--- NOTE | 2024-08-01 15:48 | PDOC.PAIN_ITS ---
Date of service: 07/11/24 Time of Service: 14:00 Pain Managment Procedure Note Procedure Note Procedure Note: PROCEDURE NOTE CAUDAL EPIDURAL STEROID INJECTION Date of Service: July 11, 2024 Patient:Bren Mcclain? Provider:? Gordon Riley DO, MPH Bren Olsen has been [facility] to the [facility] for caudal epidural steroid injection.? Pre-operative diagnosis: Lumbosacral Radiculopathy, ICD-10 M54.17 Post-operative diagnosis: Same Pre-Procedure Pain: VAS= 7/10. COMMENTS: She was previously evaluated in our clinic and this procedure was recommended. Ashleywas interviewed and the medical record was reviewed.? There were no medical, pharmacologic, radiographic or other structural contraindications to attempting fluoroscopically guided epidural steroid injection.? Risks and expected side effects as well as potential benefit of the procedure were reviewed with Ashley, and the patient's voiced concerns were addressed.? The printed consent form was signed.? Standard time-out procedure was performed. Ashley was placed in the prone position on the fluoroscopy table and automated blood pressure cuff and pulse oximeter applied.? The skin entry point for entering/approaching the epidural space by a caudal approach through the sacral hiatus ed identified with surgical skin marking.? Following thorough chlorhexidine preparation of the skin and draping and 1% lidocaine infiltration of the skin entry point and subcutaneous tissues, a 17 gauge Touhy needle was placed under fluoroscopic guidance? into the epidural space. Needle tip placement and depth were aided and confirmed by fluoroscopy in the lateral and AP position. There was no paresthesia or return of blood or CSF through the needle. 1 cc of Omnipaque 240 was injected with clear epidural spread confirmed with fluoroscopy. An Arrow 19G radio-opaque epidural catheter was advanced into the epidural space to the L5-S1 level and 2 cc of Omnipaque 240 was injected with clear epidural spread. 80 mg of Depo-Medrol was? injected. There was no unusual discomfort expressed by Bren. The needle and catheter were then flushed with 1 cc of 1% Lidocaine and they were removed together without difficulty (49 cc of Omnipaque was wasted). Bren was observed and was without hemodynamic, neurologic, or allergic reactions.? Fluoroscopic images were digitally archived. Bren's vital signs were stable throughout the procedure and were as recorded in the docflowsheet by the nursing staff.? If given, dosages of intravenous dr ugs for anxiolysis and analgesia were documented in APR. Follow up plans and appointments were discussed with Bren.? Post procedure instruction was given as documented in nursing documentation and having met discharge criteria, Bren [facility] ? COMMENTS: No apparent complications.? Post-procedure pain: VAS= 2/10. If the patient receives at least 50% improvement in pain and/or function for at least 3 months, this procedure can be repeated. I personally completed the entire procedure. GORDON RILEY DO, MPH ABPM[employer]R - Subspecialty board certification in Pain Medicine [facility] Coding Conscious Sedation used for procedure: No CPT Codes: Inj Spine L/S w/Imaging - 92585 ([id number] ~G) Additional Codes: Date of Service (65484) Date of service: 07/11/24
== END 2024-07-11 10:10 | disposition home or self-care (01) ==
LOC: PC 10:10
PROVIDERS: PCP Internal Medicine; Visit Provider Preventive Medicine Occupational Medicine
DX: M54.17 Radiculopathy, lumbosacral region (principal)
CPT/HCPCS: 62323; 72100; J1010; Q9967